=== PATIENT | female | born 1995 | race Two or more races ===

== ENCOUNTER 2021-02-20 19:10 | Emergency (ER) | payer OTHER ==
[~2021-02-20] VITALS: Ht 160 cm; Wt 61.2 kg
[2021-02-20] MEDS ORDERED: DICLOFENAC SODI75 MG PO (20:36)
== END 2021-02-21 | disposition home or self-care (01) ==
LOC: ER 19:10
DX: S90.121A Contusion of right lesser toe(s) without damage to nail, initial encounter (principal); W20.8XXA Other cause of strike by thrown, projected or falling object, initial encounter; Y93.A1 Activity, exercise machines primarily for cardiorespiratory conditioning; Y92.39 Other specified sports and athletic area as the place of occurrence of the external cause; Y99.8 Other external cause status

== ENCOUNTER 2021-05-30 12:26 | Emergency (ER) | payer OTHER ==
[~2021-05-30] VITALS: Ht 160 cm; Wt 59.0 kg
[~2021-05-30 12:26] MED LIST: DICLOFENAC SODI75 MG PO
== END 2021-05-30 16:09 | disposition home or self-care (01) ==
LOC: ER 12:26
DX: S62.636A Displaced fracture of distal phalanx of right little finger, initial encounter for closed fracture (principal); Y92.019 Unspecified place in single-family (private) house as the place of occurrence of the external cause; X58.XXXA Exposure to other specified factors, initial encounter

== ENCOUNTER 2021-07-06 20:12 | Emergency (ER) | payer OTHER ==
[~2021-07-06] VITALS: Ht 160 cm; Wt 64.0 kg
== END 2021-07-06 22:33 | disposition home or self-care (01) ==
LOC: ER 20:12
DX: O41.8X11 Other specified disorders of amniotic fluid and membranes, first trimester, fetus 1 (principal); O46.8X1 Other antepartum hemorrhage, first trimester; O30.031 Twin pregnancy, monochorionic/diamniotic, first trimester; Z3A.01 Less than 8 weeks gestation of pregnancy

== ENCOUNTER 2021-07-20 12:25 | Outpatient (CLI) | payer OTHER | END 2021-07-20 13:37 | disposition home or self-care (01) | LOC: PRENATAL 12:25 | PROVIDERS: ATTEND Obstetrics & Gynecology Maternal & Fetal Medicine | DX: O26.851 Spotting complicating pregnancy, first trimester (principal); O36.80X2 Pregnancy with inconclusive fetal viability, fetus 2; Z36.89 Encounter for other specified antenatal screening; Z3A.08 8 weeks gestation of pregnancy ==

== ENCOUNTER 2021-07-24 08:20 | Day surgery (SDC) | payer OTHER | END 2021-07-24 15:30 | disposition home or self-care (01) | LOC: CIR.AMB 08:20 | PROVIDERS: ATTEND Specialist | DX: O02.1 Missed abortion (principal); Z20.822 Contact with and (suspected) exposure to COVID-19 ==

== ENCOUNTER → 2021-10-11 | Emergency (ER) | payer OTHER ==
[~2021-10-11] VITALS: Ht 160 cm; Wt 64.4 kg
== END | disposition home or self-care (01) ==
LOC: ER 13:53
DX: O20.8 Other hemorrhage in early pregnancy (principal); Z3A.01 Less than 8 weeks gestation of pregnancy

== ENCOUNTER 2021-11-03 17:02 | Emergency (ER) | payer OTHER ==
[~2021-11-03] VITALS: Ht 160 cm; Wt 68.5 kg
[2021-11-03] MEDS ORDERED: PROGESTERONE200 MG (17:46)
[2021-11-03] MEDS ORDERED: PRENA1 TRUE CO1 EACH (17:46)
== END 2021-11-03 21:59 | disposition home or self-care (01) ==
LOC: ER 17:02
DX: O20.9 Hemorrhage in early pregnancy, unspecified (principal); Z3A.08 8 weeks gestation of pregnancy

== ENCOUNTER 2022-03-06 22:03 | Outpatient (CLI) | payer OTHER ==
[~2022-03-06] VITALS: Ht 152.4 cm; Wt 73.5 kg
[~2022-03-06 22:03] MED LIST changes: +PRENA1 TRUE CO1 EACH; +PROGESTERONE200 MG
[2022-03-07] MEDS ORDERED: NIFEDIPINE ER30 MG PO (08:12)
== END 2022-03-07 09:08 | disposition home or self-care (01) ==
LOC: OBS/DEL 22:03
PROVIDERS: ATTEND Specialist
DX: O26.892 Other specified pregnancy related conditions, second trimester (principal); Z3A.26 26 weeks gestation of pregnancy; R10.30 Lower abdominal pain, unspecified

== ENCOUNTER 2022-03-07 23:43 | Inpatient (IN) | payer OTHER ==
[~2022-03-07] VITALS: Ht 160 cm; Wt 73.5 kg
[~2022-03-07 23:43] MED LIST changes: +NIFEDIPINE ER30 MG PO
[2022-03-16] MEDS ORDERED: TERBUTALINE SULF5 MG PO (07:41)
== END 2022-03-16 12:05 | disposition home or self-care (01) | DRG 833 ==
LOC: LDR 23:43 → OB/GYN 03-08 08:52
PROVIDERS: ADMIT Specialist; ATTEND Specialist
PROC: 4A1HXCZ Monitoring of Products of Conception, Cardiac Rate, External Approach (ICD-10-PCS; principal; 2022-03-07)
PROC: BY4CZZZ Ultrasonography of Second Trimester, Single Fetus (ICD-10-PCS; 2022-03-08)
PROC: BU4CZZZ Ultrasonography of Uterus and Ovaries (ICD-10-PCS; 2022-03-08)
DX: O47.02 False labor before 37 completed weeks of gestation, second trimester (principal); O35.0XX0 Maternal care for (suspected) central nervous system malformation in fetus, not applicable or unspecified; O35.3XX0 Maternal care for (suspected) damage to fetus from viral disease in mother, not applicable or unspecified; Z3A.26 26 weeks gestation of pregnancy; Z20.822 Contact with and (suspected) exposure to COVID-19

== ENCOUNTER 2022-05-31 13:45 | Inpatient (IN) | payer OTHER ==
[~2022-05-31] VITALS: Ht 160 cm; Wt 3.2 kg
[~2022-05-31 13:45] MED LIST changes: +TERBUTALINE SULF5 MG PO
[2022-06-07] MEDS ORDERED: IBUPROFEN800 MG PO (08:09)
== END 2022-06-07 10:52 | disposition home or self-care (01) | DRG 788 ==
LOC: EDSTATUS 13:45 → LDR 06-05 09:41 → OB/GYN 06-05 16:13 → LDR 06-09 13:45
PROVIDERS: ADMIT Specialist; ATTEND Specialist
PROC: 4A1HXCZ Monitoring of Products of Conception, Cardiac Rate, External Approach (ICD-10-PCS; 2022-06-05)
PROC: 10D00Z1 Extraction of Products of Conception, Low, Open Approach (ICD-10-PCS; principal; 2022-06-05 13:00)
DX: O33.8 Maternal care for disproportion of other origin (principal); O99.824 Streptococcus B carrier state complicating childbirth; Z3A.39 39 weeks gestation of pregnancy; Z37.0 Single live birth; Z20.822 Contact with and (suspected) exposure to COVID-19